=== PATIENT | female | born 1975 | race African-American/Black ===

== ENCOUNTER 2016-05-08 13:09 | Emergency (ER) | payer OTHER ==
[2016-05-08 13:14] VITALS: BP 159/90; PULSE 80; TEMP 98.1; BMI 33.0
--- NOTE | 2016-05-08 14:25 | PDOC ---
History of Present Illness - General Chief Complaint: Pain Stated Complaint: RT HAND/WRIST PAIN Time Seen by Provider: 05/08/16 13:19 History Source: Patient Exam Limitations: No Limitations - History of Present Illness Initial Comments: 05/08/16 14:22 41 yr female with c/o right hand injury at work today the hand was bent back. Past History - Past Medical History Allergies/Adverse Reactions: Allergies Allergy/AdvReac Type Severity Reaction Status Date / Time No Known Allergies Allergy Verified 05/08/16 13:13 Home Medications: Ambulatory Orders Hydrochlorothiazide [Hctz -] 50 mg PO DAILY 02/20/15 Pantoprazole Sodium [Protonix] 40 mg PO DAILY 03/05/15 Loratadine [Claritin] 10 mg PO DAILY #30 tablet 04/21/15 Acetaminophen/Caffeine/Butalb [Fioricet -] 1 tab PO Q4H 09/26/15 Asthma: No Cancer: No Cardiac Disorders: No Diabetes: Yes (H/O GESTATIONAL.) GI Disorders: Yes (GERD.) HTN: Yes Suicide Attempt (Hx): No Seizures: No Thyroid Disease: No - Surgical History Abdominal Surgery: Yes - Immunization History Immunization Up to Date: Yes - Psycho/Social/Smoking Cessation Hx Anxiety: Yes Suicidal Ideation: No Smoking History: Never smoked Have you smoked in the past 12 months: No Number of Cigarettes Smoked Daily: 7 Information on smoking cessation initiated: Yes 'Breaking Loose' booklet given: 05/08/16 Hx Alcohol Use: No Drug/Substance Use Hx: No Substance Use Type: None Hx Substance Use Treatment: No *Physical Exam - Vital Signs Last Vital Signs Temp Pulse Resp BP Pulse Ox 98.1 F 80 18 159/90 100 05/08/16 13:10 05/08/16 13:10 05/08/16 13:10 05/08/16 13:10 05/08/16 13:10 - Physical Exam General Appearance: Yes: Nourished, Appropriately Dressed HEENT: positive: EOMI, DEAN, Normal ENT Inspection, TMs Normal, Pharynx Normal Neck: positive: Supple. negative: Tender Respiratory/Chest: positive: Lungs Clear, Normal Breath Sounds Cardiovascular: positive: Regular Rhythm, Regular Rate Musculoskeletal: positive: Normal Inspection Extremity: positive: Normal Capillary Refill, Tender (base of right thumb , nv intact full range of motion) Integumentary: positive: Normal Color, Dry, Warm Neurologic: positive: Fully Oriented, Alert, Normal Mood/Affect, Normal Response , Motor Strength 5/5 Procedures - Splinting Pre-Made Type: velcro (right wrist) Post-Proc Neuro Vasc Exam: normal ED Treatment Course - RADIOLOGY Radiology Studies Ordered: Category Date Time Status HAND- RIGHT [RAD] Stat Radiology 05/08/16 13:51 Completed Medical Decision Making - Medical Decision Making 05/08/16 14:29 cc: right hand/thumb injury at work states a child bent her hand backwards. nv intact no deformity or swelling will get xray to r/o fracture pt took motrin BOX NAILER *DC/Admit/Observation/Transfer Diagnosis at time of Disposition: Strain of thumb, right Qualifiers: Encounter type: initial encounter Qualified Code(s): S66.911A - Strain of unspecified muscle, fascia and tendon at wrist and hand level, right hand, initial encounter - Discharge Dispostion Disposition: HOME Condition at time of disposition: Good - Referrals Referrals: Stanley Barillas [Primary Care Provider] - Salo Agustin MD [Staff Physician] - - Patient Instructions Additional Instructions: take motrin or tylenol for pain use the splint while awake remove to sleep and bathe follow with the orthopedist next week if pain worsens or continues beyond a few days
== END 2016-05-08 15:03 | disposition home or self-care (01) ==
LOC: JERFT 13:09
PROC: 2W3EX1Z Immobilization of Right Hand using Splint (ICD-10-PCS; principal; 2016-05-08)
DX: S66.911A Strain of unspecified muscle, fascia and tendon at wrist and hand level, right hand, initial encounter (principal); X58.XXXA Exposure to other specified factors, initial encounter; Y93.89 Activity, other specified; Y92.219 Unspecified school as the place of occurrence of the external cause; Y99.0 Civilian activity done for income or pay
CPT/HCPCS: 73130-TC-RT; 99281-25

== ENCOUNTER 2016-06-26 13:08 | Emergency (ER) | payer OTHER ==
[2016-06-26 13:16] VITALS: TEMP 98.6; BMI 29.9
--- NOTE | 2016-06-26 14:32 | PDOC ---
History of Present Illness - General Chief Complaint: Chest Pain Stated Complaint: CHEST PAIN Time Seen by Provider: 06/26/16 13:48 History Source: Patient Exam Limitations: No Limitations - History of Present Illness Initial Comments: 41 y/o F w/PMH of HTN, anxiety, migraine, GERD presents to ER with c/o of "chest pain". Pain came suddenly this morning while sitting and was rated at an 8/10. Pain lasted for 1 second, was sharp, located to the left of the mid- sternum, and did not radiate to arms or jaw. Pt felt somewhat diaphoretic after pain and felt light-headed after pain. 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 Pt was able to drive to the ER. She states she checks her BP daily and over the last 5 days she has had readings of approximately 130/90 which is higher than baseline (usually runs around 120/78) . She has also had headaches daily for the last 3 days which are located in the forehead usually but today behind L eye and is described as being dull. She has taken tylenol and done nasal saline rinses which have helped her with the headache and has also helped with pressure she has felt in her cheeks. Headaches started 3 days ago with dull headache after waking up. She has had headaches like this in the past and doesn't describe them as acutely debilitating headaches. 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 At this time she feels better in terms of light -headedness compared to earlier today and has no chest pain at this time but still has the dull headache. She denies LOC, visual changes, ringing in ears, sore throat, nasal drainage, SOB, cough, sputum production, nausea, vomiting, fevers, dysuria, blood in stool, diarrhea, constipation, peripheral swelling. Denies recent travel history. Recently saw cardiology 1 year ago and had stress test and echo which she states were unremarkable. Saw endocrine recently who states she has no thyroid abnormalities. Saw PCP recently (Dr. Barillas) who states she has borderline diabetes. Has had 2 CT scans of her head and 1 MRI in the last 2-3 years from neurology for migraines and all have been unremarkable. Past History - Past Medical History Allergies/Adverse Reactions: Allergies Allergy/AdvReac Type Severity Reaction Status Date / Time No Known Allergies Allergy Verified 06/26/16 13:11 Home Medications: Ambulatory Orders Hydrochlorothiazide [Hctz -] 25 mg PO DAILY 02/20/15 Acetaminophen/Caffeine/Butalb [Fioricet -] 1 tab PO Q4H 09/26/15 Cholecalciferol (Vitamin D3) [Vitamin D3] 1,000 unit PO DAILY 06/26/16 Omeprazole 20 mg PO DAILY 06/26/16 Asthma: No Cancer: No Cardiac Disorders: No Diabetes: Yes (H/O GESTATIONAL.) GI Disorders: Yes (GERD.) HTN: Yes Suicide Attempt (Hx): No Seizures: No Thyroid Disease: No - Surgical History Abdominal Surgery: Yes - Immunization History Immunization Up to Date: Yes - Psycho/Social/Smoking Cessation Hx Anxiety: Yes Suicidal Ideation: No Smoking History: Never smoked Have you smoked in the past 12 months: Yes Number of Cigarettes Smoked Daily: 10 Information on smoking cessation initiated: No 'Breaking Loose' booklet given: 05/08/16 Hx Alcohol Use: No Drug/Substance Use Hx: No Substance Use Type: None Hx Substance Use Treatment: No Review of Systems - Review of Systems Able to Perform ROS?: Yes Comments:: CONSTITUTIONAL: +diaphoresis Absent: fever, chills, generalized weakness, malaise HEENT: Absent: rhinorrhea, nasal congestion, throat pain, throat swelling, ringing in ear, eye pain, visual Changes CARDIOVASCULAR: +chest pain Absent: syncope, palpitations, irregular heart rate, lightheadedness, peripheral edema RESPIRATORY: Absent: cough, shortness of breath, dyspnea with exertion, orthopnea, wheezing, stridor, hemoptysis GASTROINTESTINAL:Absent: abdominal pain, abdominal distension, nausea, vomiting , diarrhea, constipation, melena, hematochezia GENITOURINARY: Absent: dysuria, frequency, urgency, hesitancy, hematuria, flank pain, genital pain ENDOCRINE:Absent: unexplained weight gain, unexplained weight loss, heat intolerance, cold intolerance NEUROLOGIC: +headache, lightheadedness Absent: focal weakness or paresthesias, unsteady gait, seizure, mental status changes, bladder or bowel incontinence PSYCHIATRIC: Absent: anxiety, depression, suicidal or homicidal ideation, hallucinations Is the patient limited Hebrew proficient: No *Physical Exam - Vital Signs Last Vital Signs Temp Pulse Resp BP Pulse Ox 98.6 F 84 19 162/107 99 06/26/16 13:11 06/26/16 13:11 06/26/16 13:11 06/26/16 13:11 06/26/16 13:11 - Physical Exam Comments: GENERAL: Well developed, well nourished. Awake and alert. No acute distress. HEENT: +pressure on palpation in maxillary sinuses. Normocephalic, atraumatic. PERRLA, EOMI. Red reflex present. No conjunctival pallor. Sclera are non- icteric. Oropharynx is clear. NECK: Supple. Full ROM. No lymphadenopathy. No thyromegaly. CARDIOVASCULAR: Regular rate and rhythm. 1/6 holosystolic murmur, rubs, or gallops. PULMONARY: Diminished breath sounds. No evidence of respiratory distress. Lungs clear to auscultation bilaterally. No wheezing, rales or rhonchi. ABDOMINAL: Soft. Non-tender. Non-distended. No rebound or guarding. No organomegaly. Normoactive bowel sounds. MUSCULOSKELETAL: 5/5 B/L UE and LE strength. Normal range of motion at all joints. No bony deformities or tenderness. No CVA tenderness. EXTREMITIES: No edema. No calf tenderness. SKIN: Warm and dry. Normal capillary refill. No rashes. No jaundice. NEUROLOGICAL:Sensation equal on B/L face, UE, LE. Alert, awake, appropriate. Cranial nerves 2-12 grossly intact. Normal speech. PSYCHIATRIC: Cooperative. Good eye contact. Appropriate mood and affect. Heart Score/ECG Review - ECG Intrepretation Comment:: EKG 13:19:24 NSR @ 80 bpm. Possible atrial enlargement. ED Treatment Course - LABORATORY CBC & Chemistry Diagram: 06/26/16 14:30 06/26/16 14:30 Medical Decision Making - Medical Decision Making 06/26/16 14:49 162/107 BP on initial vitals (@1:11 pm) Cbc, CMP, cardiac profile ordered. EKG shows NSR @ 80 bpm, no ST segment elevatin or depression noted. ASA 324 ordered. Tylenol for headache Pantoprazole for GERD BP R arm: 121/82 BP L arm 111/82 pt still with no active chest pain, feeling better. 06/26/16 15:47 Pt headache improved with Tylenol. Repeat BP 122/87 on R arm. 06/26/16 16:00 Reviewed chart, pt had negative stress echo in February 2015. Pt also states she has had 2 CTs of head and MRI of head over last 2-3 years which are also unremarkable for migraines. Pt had CT head in chart from 2013 which was negative. 06/26/16 16:[address] Barillas's office and updated office about pt and presenting symptoms and management here and labs here. Pt to f/u with Dr. Barillas Wednesday afternoon and to f/u with assistant manager pt Dr. Lloyd at same office on morning. Pt aware of appointments and will follow up. Pt continues to feel well. BP 158/110, pt remains asymptomatic. Pt states she has had episodes of syncope with small increases to her medications and with any other medication she has tried including lowest doses of diovan, labetalol. Will not add another medication at this time due to risk of syncopal event. Pt strongly advised to come back to ER if symptoms worsen. 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 Will discharge with instructions to take flonase and to take OTC antihistamine without "D" (zyrtec, tanesha, claritin) and to f/u with PCP and cardiology. 06/26/16 16:46 *DC/Admit/Observation/Transfer Diagnosis at time of Disposition: Uncontrolled hypertension Sinusitis Qualifiers: Sinusitis location: maxillary Chronicity: unspecified Qualified Code(s): J32.0 - Chronic maxillary sinusitis - Discharge Dispostion Disposition: HOME Condition at time of disposition: Good - Referrals Referrals: Stanley Barillas [Primary Care Provider] - - Patient Instructions Printed Discharge Instructions: DI for Atypical Chest Pain, DI for Chest Pain, DI for Sinusitis Additional Instructions: Follow up with your primary care doctor on Wednesday at 2:30 pm Follow up with your assistant manager pt at your primary's office on at 10:30 am Take flonase and take ONE of the following medications for allergies and sinusitis: zyrtec, tanesha, or claritin without the "D" added to the name as the medications with the "D" added to the name may increase your blood pressure. You will need to follow up with your primary care doctor regarding your headaches, sinusitis, and high blood pressure. You will also need to follow up with your assistant manager pt for the high blood pressure. Please return to the ER if your symptoms worsen.
[2016-06-26 14:45] LABS: BASOPHIL 1.3 % (0-2.0); EOSINOPHIL 4.1 % (0-4.5); MCHC 33.7 g/dl (32.0-36.0); MEAN CELL VOLUME 91.7 fl (80-96); MEAN PLT VOLUME 8.7 fl (7.5-11.1); NEUTROPHILS 38.1 % (42.8-82.8); PLATELET COUNT 277 K/MM3 (134-434); RDW 13.5 % (11.6-15.6); WHITE BLOOD COUNT 5.7 K/mm3 (4.0-10.0)
[2016-06-26] MEDS ORDERED: ACETAMINOPHEN 325 MG TABLET (FP) PO ONE (14:47)
[2016-06-26] MEDS ORDERED: PANTOPRAZOLE 40 MG TABLET (FP) PO ONE (14:47)
[2016-06-26] MEDS ORDERED: PANTOPRAZOLE 40 MG TABLET (FP) ONE (14:51)
[2016-06-26] MEDS ORDERED: ACETAMINOPHEN 325 MG TABLET (FP) ONE (14:51)
[2016-06-26] MEDS ORDERED: ASPIRIN 81 MG CHEWABLE TABLETS PO ONE (15:05)
[2016-06-26 15:12] LABS: ALBUMIN 3.8 g/dl (3.4-5.0); ANION GAP 10 (8-16); CALCIUM 9.1 mg/dL (8.5-10.1); CO2 27 mmol/L (21-32); COCKROFT - GAULT 124.4995; CREATININE 0.8 mg/dL (0.55-1.02); GLUCOSE,RANDOM 100 mg/dL (74-106); SGPT/ALT 22 U/L (12-78)
[2016-06-26 15:15] LABS: ALK PHOS 52 U/L (45-117); BILIRUBIN,TOTAL 0.2 mg/dL (0.2-1.0); TOT PROT 7.4 g/dl (6.4-8.2); TROPONIN I < 0.02 ng/ml (0.00-0.05)
[2016-06-26 15:22] LABS: SGOT/AST 22 U/L (15-37)
[2016-06-26] MEDS ORDERED: ASPIRIN 325 MG TABLET ONE (15:25)
--- NOTE | 2016-06-26 15:55 | PDOC ---
Attending Attestation - Resident Resident Name: HollandCurt - ED Attending Attestation I have performed the following: I have examined & evaluated the patient, The case was reviewed & discussed with the resident, I agree w/resident's findings & plan - HPI HPI: 06/26/16 15:51 41 yo F with h/o allergic rhinitis, HTN here wtih c/o 3 - 4 days nasal congestion. thick nasal discharge, and frontal maxillary headache, facial pain. slow and progressive. has had in the past. feels tingling teeth and maxilla. was checking bp today, noted to be elevated. also had episodic chest pain, substernal, no radiation, no sob. lasted only few seconds. did feel lightheaded , and diaphoretic at time. pt states had a stress test and ct coronaries one year ago which was normal. no f/c takes hctz 25 daily. no vision changes. no weakness, no other factors. follows with cardiolpogy and pcp on [facility] dr. Bills pcp. - Physicial Exam PE: 06/26/16 15:53 on exam awake alert. nasal turbinates enlarged bilaterally. frontal forehead sinus ttp, maxillary sinus ttp. no temp art. ttp. nasal congestion. lungs CTAB, heart RRR systolic murmer. abd soft no puls massess. ext wwp no edema. nuero CN intact 5/5 all four ext. - Medical Decision Making 06/26/16 15:55 pt with htn, jenkins likley secondary to allergic rhinitis, sinusitis. and chest pain differential acs, infection, bp controlled in ed. no sxs suggestive of ICH , improved with tylenol pt with negative recent stress test. will d/w pcp to confirm. recommend tele cxr trop aspirin, pain control, and 4 hr trop short obs. if negative dc home.
[2016-06-26 16:43] VITALS: BP 158/110; PULSE 72
--- NOTE | 2016-06-29 12:56 | EKG ---
Test Reason : Blood Pressure : / mmHG Vent. Rate : 080 BPM Atrial Rate : 080 BPM P-R Int : 178 ms QRS Dur : 076 ms QT Int : 372 ms P-R-T Axes : 057 -05 002 degrees QTc Int : 429 ms NORMAL SINUS RHYTHM POSSIBLE LEFT ATRIAL ENLARGEMENT CANNOT RULE OUT ANTERIOR INFARCT (CITED ON OR BEFORE 24-FEB-2015) ABNORMAL ECG WHEN COMPARED WITH ECG OF 26-SEP-2015 10:38, NO SIGNIFICANT CHANGE WAS FOUND Confirmed by URSZULA MIN MD ([id number]) on 06/29/2016 12:56:04 PM Referred By: Confirmed By:URSZULA MIN MD
== END 2016-06-26 16:45 | disposition home or self-care (01) ==
LOC: JER 13:08
DX: I10 Essential (primary) hypertension (principal); F41.9 Anxiety disorder, unspecified; K21.9 Gastro-esophageal reflux disease without esophagitis; G43.909 Migraine, unspecified, not intractable, without status migrainosus
CPT/HCPCS: 36415; 80053; 82550; 82553; 84484; 85025; 93005; 93010; 99285-25

== ENCOUNTER 2020-07-09 23:15 | Emergency (ER) | payer OTHER ==
[2020-07-09 23:19] VITALS: BP 160/103; PULSE 86; TEMP 98.4; BMI 32.8
[2020-07-09] MEDS ORDERED: ACETAMINOPHEN 325 MG TABLET (FP) PO ONE (23:33)
[2020-07-10] MEDS ORDERED: ACETAMINOPHEN 325 MG TABLET (FP) ONE (00:04)
== END 2020-07-10 00:19 | disposition home or self-care (01) ==
LOC: JER 23:15
DX: K08.89 Other specified disorders of teeth and supporting structures (principal)
CPT/HCPCS: 99283-25

== ENCOUNTER 2020-11-08 13:45 | Emergency (ER) | payer OTHER ==
[2020-11-08 13:58] VITALS: BP 147/90; PULSE 67; TEMP 97.7; BMI 33.3
== END 2020-11-08 16:05 | disposition left against medical advice (07) ==
LOC: JER 13:45
DX: R42 Dizziness and giddiness (principal); R11.0 Nausea
CPT/HCPCS: 93005; 93010; 99281-25

== ENCOUNTER 2023-09-07 10:44 | Emergency (ER) | payer OTHER ==
[2023-09-07 10:59] VITALS: BP 162/97; PULSE 74; RESP 20; TEMP 97.8; BMI 30.1
[2023-09-07] MEDS ORDERED: ACETAMINOPHEN INJECTION 100 ML IVPB ONE (11:52)
[2023-09-07] MEDS ORDERED: METOCLOPRAMIDE HCL INJECTION 10 MG/2 ML VIAL ONE (12:03)
[2023-09-07] MEDS: ACETAMINOPHEN 1000 MG/100 ML BAG IVPB ONE (12:20)
[2023-09-07] MEDS: SODIUM CHLORIDE 0.9% 500 ML INFUS.BAG IV ONE (12:20)
[2023-09-07] MEDS: METOCLOPRAMIDE HCL INJECTION 10 MG/2 ML VIAL IVPB ONE (12:21)
[2023-09-07 12:30] LABS: BASO % 1.5 % (0-2.0); EOS % 2.5 % (0-4.5); HEMATOCRIT 37.1 % (32.4-45.2); HEMOGLOBIN 12.6 GM/dL (10.7-15.3); LYMPH % 49.2 % (8-40); MCH 29.8 pg (25.7-33.7); MEAN CELL VOLUME 87.6 fl (80-96); MEAN PLT VOLUME 7.4 fl (7.5-11.1); NEUT % 37.8 % (42.8-82.8); PLATELET COUNT 318 10^3/uL (134-434); RBC 4.23 M/mm3 (3.60-5.2); RDW 16.2 % (11.6-15.6); WHITE BLOOD COUNT 4.9 K/mm3 (4.0-10.0)
[2023-09-07 12:48] LABS: INR 0.88 (0.83-1.09)
[2023-09-07 12:51] LABS: ACTIVATED PTT 33.6 SECONDS (25.2-36.5)
[2023-09-07 13:30] LABS: POTASSIUM 3.9 mmol/L (3.5-5.1)
[2023-09-07 13:32] LABS: BLOOD UREA NITROGEN 10.4 mg/dL (7-18); CALCIUM 9.1 mg/dL (8.5-10.1)
[2023-09-07 13:33] LABS: ALBUMIN 3.5 g/dl (3.4-5.0)
[2023-09-07 13:36] LABS: CREATININE 0.7 mg/dL (0.55-1.3)
[2023-09-07 13:37] LABS: BILIRUBIN,TOTAL 0.6 mg/dL (0.2-1); TOT PROT 7.5 g/dl (6.4-8.2)
== END 2023-09-07 13:46 | disposition home or self-care (01) ==
LOC: JER 10:44
PROC: 3E033NZ Introduction of Analgesics, Hypnotics, Sedatives into Peripheral Vein, Percutaneous Approach (ICD-10-PCS; principal; 2023-09-07)
PROC: 3E033GC Introduction of Other Therapeutic Substance into Peripheral Vein, Percutaneous Approach (ICD-10-PCS; 2023-09-07)
PROC: 3E033GC Introduction of Other Therapeutic Substance into Peripheral Vein, Percutaneous Approach (ICD-10-PCS; 2023-09-07)
DX: R55 Syncope and collapse (principal); R51.9 Headache, unspecified; M54.2 Cervicalgia; M25.522 Pain in left elbow; M25.551 Pain in right hip; W19.XXXA Unspecified fall, initial encounter
CPT/HCPCS: 36415; 70450-TC; 71045-TC-FY; 72125-TC; 72170-TC-FY; 73070-TC-LT-FY; 80053; 82962; 84484; 84703; 85025; 85610; 85730; 93005; 93010; 99285-25; J0131